=== PATIENT | female | born 1985 | race Native Hawaiian/Other Pacific Islander ===

== ENCOUNTER 2020-01-26 10:59 | Outpatient (CLI) | payer OTHER | END 2020-01-26 19:03 | disposition home or self-care (01) | LOC: RAD 10:59 | DX: Z87.09 Personal history of other diseases of the respiratory system (principal) ==

== ENCOUNTER 2020-11-27 11:22 | Outpatient (CLI) | payer OTHER | END 2020-11-27 19:37 | disposition home or self-care (01) | LOC: RAD 11:22 → EDBD 11:22 → RAD 19:37 | PROVIDERS: ATTEND Nurse Practitioner Primary Care | DX: Z03.89 Encounter for observation for other suspected diseases and conditions ruled out (principal) ==

== ENCOUNTER 2021-01-06 11:10 | Outpatient (CLI) | payer OTHER | END 2021-01-06 19:22 | disposition home or self-care (01) | LOC: RAD 11:10 | PROVIDERS: ATTEND Nurse Practitioner Primary Care | DX: M54.5 Low back pain (principal); M25.562 Pain in left knee; M25.561 Pain in right knee ==

== ENCOUNTER 2021-03-10 11:14 | Outpatient (CLI) | payer OTHER | END 2021-03-10 21:47 | disposition home or self-care (01) | LOC: RAD 11:14 | PROVIDERS: ATTEND Nurse Practitioner Family | DX: J20.8 Acute bronchitis due to other specified organisms (principal) ==

== ENCOUNTER 2021-03-21 09:58 | Outpatient (CLI) | payer OTHER ==
[2021-04-04 14:32] LABS: PLATELET COUNT 334 K/uL (152-353)
[2021-04-04 14:33] LABS: POTASSIUM 4.3 mmol/L (3.6-5.2)
== END 2021-03-21 23:59 | disposition home or self-care (01) ==
LOC: LABW 09:58
PROVIDERS: ATTEND Internal Medicine Gastroenterology
DX: B18.2 Chronic viral hepatitis C (principal)
CPT/HCPCS: 80048; 80074; 85027

== ENCOUNTER 2021-11-15 13:17 | Emergency (ER) | payer OTHER ==
[~2021-11-15] VITALS: Ht 157.5 cm; Wt 79.4 kg
[2021-11-15 13:24] VITALS: BP 142/90; TEMP 97.4
[2021-11-15 14:29] LABS: PLATELET COUNT 325 K/uL (152-353)
[2021-11-15 14:31] LABS: POTASSIUM 3.6 mmol/L (3.6-5.2)
== END 2021-11-15 15:08 | disposition home or self-care (01) ==
LOC: ED 13:17
PROVIDERS: Family Medicine
DX: T78.49XA Other allergy, initial encounter (principal); L01.09 Other impetigo; X58.XXXA Exposure to other specified factors, initial encounter; Y92.89 Other specified places as the place of occurrence of the external cause
CPT/HCPCS: 80053; 85027; 96372; 99283; J1200

== ENCOUNTER 2022-07-15 03:50 | Emergency (ER) | payer OTHER ==
[~2022-07-15] VITALS: Ht 157.5 cm; Wt 68.0 kg
[2022-07-15 04:45] VITALS: BP 165/90; TEMP 98.3
== END 2022-07-15 04:45 | disposition home or self-care (01) ==
LOC: ED 03:50
DX: F15.10 Other stimulant abuse, uncomplicated (principal); L98.8 Other specified disorders of the skin and subcutaneous tissue; A49.02 Methicillin resistant Staphylococcus aureus infection, unspecified site
CPT/HCPCS: 80307; 81002; 99283

== ENCOUNTER 2023-01-11 14:57 | Emergency (ER) | payer OTHER ==
[~2023-01-11] VITALS: Ht 157.5 cm; Wt 76.2 kg
[2023-01-11 15:05] VITALS: TEMP 98
[2023-01-11 15:53] LABS: PLATELET COUNT 299 K/uL (152-353)
[2023-01-11 16:02] LABS: POTASSIUM 3.4 mmol/L (3.6-5.2)
[2023-01-11 16:37] VITALS: BP 120/76
== END 2023-01-11 16:40 | disposition home or self-care (01) ==
LOC: ED 14:57
PROVIDERS: Emergency Medicine Emergency Medical Services
DX: R60.0 Localized edema (principal); E87.6 Hypokalemia; F15.10 Other stimulant abuse, uncomplicated
CPT/HCPCS: 80053; 80307; 81000; 81025; 85027; 93005; 99283